=== PATIENT | female | born 1995 | race Caucasian/White ===

== ENCOUNTER 2017-04-18 23:16 | Emergency (ER) | payer BC ==
[2017-04-18] MEDS ORDERED: diPHENhydraMINE IV* 50 MG in NS 0.9% 50 ML* 50 ML IVPB ONE (23:40)
[2017-04-18] MEDS ORDERED: methylPREDNISolone 125 MG* 2 ML VIAL IV ONE (23:40)
[2017-04-18] MEDS ORDERED: diPHENhydraMINE IV* 50 MG/ML 1 ml VIAL (BENADRYL) SLOW PUSH ONE (23:40)
[2017-04-18] MEDS ORDERED: Famotidine IV* 10 MG/ML 2 ML (20 mg) IV SLOW PU ONE (23:41)
[2017-04-19] MEDS ORDERED: EPINEPHrine PEN ADULT(NF) 0.3 MG SYRINGE IM SCH
--- NOTE | 2017-04-19 02:06 | ED ---
Jackson Ortiz Rebecca, scribed for Fahad Croral on 04/19/17 at 0132 . Progress - Progress Note Progress Note: Pt was signed out from Dr. Hoskins at shift change for medications and observation. Re-Evaluation - Re-Evaluation First Eval Re-Evaluation Time: 01:30 Change: Improved Comment: Pt's sx have improved Course/Dx - Course Course Of Treatment: Pt was signed out from Dr. Hoskins awaiting medications and observation. Pt's sx have improved so she will be D/C to home with Dx of food allergy and allergic reaction to food. She understands and agrees. - Diagnoses Provider Diagnoses: Food allergy, Allergic reaction to food The documentation as recorded by the Jackson gillespie Rebecca accurately reflects the service I personally performed and the decisions made by , Fahad Corral.
[2017-04-19 05:09] VITALS: BP 109/74
--- NOTE | 2017-04-23 12:04 | ED ---
Jackson Ortiz Rebecca, scribed for Juvencio Hoskins MD on 04/19/17 at 0002 . Allergic Reaction/Systemic - HPI Summary HPI Summary: Pt is a 21 y/o F BIBA who presents to ED c/o allergic reaction. Pt has never had a formal workup for food allergies, but she has had prior reactions. She believes she is allergic to pine nuts, kiwi and eggplants. While out at dinner tonight at a networking event at the [employer], within minutes after eating various foods, she developed a scratchy throat and rash on her face, forehead and scalp that then spread to the palms and bilateral UE. She additionally notes wheezing at home EDUCATION REPORTER which is when she called an ambulance. No Tx by EMS and she has never required an Epi-Pen previously. - History of Current Complaint Chief Complaint: EDAllergicReaction Time Seen by Provider: 04/18/17 23:40 Hx Obtained From: Patient Onset/Duration: Sudden Onset, Still Present Severity Currently: Mild Pain Intensity: 2 Pain Scale Used: 0-10 Numeric Location: Discrete @ - Face, forehead, scalp, palms and bilateral UE Character: Hives Aggravating Factor(s): Nothing Alleviating Factor(s): Nothing Associated Signs And Symptoms: Positive: Other: - Wheezing EDUCATION REPORTER, scratchy throat - Allergies/Home Medications Allergies/Adverse Reactions: Allergies Allergy/AdvReac Type Severity Reaction Status Date / Time kiwi Allergy Unknown Uncoded 04/18/17 23:37 Reaction Details pine nuts Allergy Unknown Uncoded 04/18/17 23:37 Reaction Details PMH/Surg Hx/FS Hx/Imm Hx Cardiovascular History: Denies: Hx Coronary Artery Disease EENT History: Reports: Other - Hx suspected food allergies Infectious Disease History: No Infectious Disease History: Reports: Traveled Outside the [place] in Last 30 Days - Family History Known Family History: Negative: Hypertension, Diabetes - Social History Alcohol Use: None Smoking Status (MU): Never Smoked Tobacco Review of Systems Positive: Other - Scratchy throat Positive: Other - Wheezing EDUCATION REPORTER Positive: Rash - Hives on the face, forehead, scalp, palms and bilateral UE All Other Systems Reviewed And Are Negative: Yes Physical Exam - Summary Physical Exam Summary: Constitutional: Well-developed, Well-nourished, Alert. (-) Distressed Skin: Warm, Dry, has a faint splotchy rash on her face, scalp and arms HENT: Normocephalic; Atraumatic Eyes: Conjunctiva normal Neck: Musculoskeletal ROM normal neck. (-) JVD, (-) Stridor, (-) Tracheal deviation Cardio: Rhythm regular, rate normal, Heart sounds normal; Intact distal pulses; The pedal pulses are 2+ and symmetric. Radial pulses are 2+ and symmetric. (-) Murmur Pulmonary/Chest wall: Effort normal. (-) Respiratory distress, (-) Wheezes, (-) Rales, (-) Stridor Abd: Soft, (-) Tenderness, (-) Distension, (-) Guarding, (-) Rebound Musculoskeletal: (-) Edema Lymph: (-) Cervical adenopathy Neuro: Alert, Oriented x3 Psych: Mood and affect Normal Triage Information Reviewed: Yes Vital Signs On Initial Exam: Initial Vitals Temp Pulse Resp BP Pulse Ox 99.5 F 76 16 107/63 98 04/18/17 23:30 04/18/17 23:30 04/18/17 23:30 04/18/17 23:30 04/18/17 23:30 Vital Signs Reviewed: Yes Diagnostics - Vital Signs Vital Signs Temp Pulse Resp BP Pulse Ox 04/18/17 23:30 99.5 F 76 16 107/63 98 - Laboratory Lab Statement: Any lab studies that have been ordered have been reviewed, and results considered in the medical decision making process. Allergic Reaction Course/Dx - Course Assessment/Plan: Pt is a 21 y/o F BIBA who presents to ED c/o allergic reaction. Pt has never had a formal workup for food allergies, but she has had prior reactions. She believes she is allergic to pine nuts, kiwi and eggplants. While out at dinner tonight at a networking event at the [facility], within minutes after eating various foods, she developed a scratchy throat and rash on her face, forehead and scalp that then spread to the palms and bilateral UE. She additionally notes wheezing at home EDUCATION REPORTER which is when she called an ambulance. No Tx by EMS and she has never required an Epi-Pen previously. In the ED course, pt was adminstered Benadryl, Pepcid and Solu-Medrol. She should have an Epi-Pen and Prednisone prescribed and a referral to an medicine technologist/ENT. Dispensed her with an Epi-Pen and counseled her on food avoidance. Patient will be signed out to Dr. Corral at shift change to receive medications. - Diagnoses Provider Diagnoses: Food allergy, Allergic reaction to food Discharge - Discharge Plan Condition: Stable Disposition: OTHER Discharge Disposition Comment: Signed out to Dr. Corral at shift change receive medications Prescriptions: Epinephrine [Epipen 2-Bob] 0.3 mg IM SEE INSTRUCTIONS #2 inj Prednisone 20 mg PO DAILY #4 tab Referrals: [facility] [Primary Care Provider] - The documentation as recorded by the Jackson gillespie Rebecca accurately reflects the service I personally performed and the decisions made by , Juvencio Hoskins MD.
== END 2017-04-19 06:25 ==
LOC: ED 23:16
DX: T78.1XXA Other adverse food reactions, not elsewhere classified, initial encounter (principal); R06.2 Wheezing; R21 Rash and other nonspecific skin eruption; L27.2 Dermatitis due to ingested food
CPT/HCPCS: 96372; 96374; 96375; 99284; J1200; J2930

== ENCOUNTER 2018-07-21 18:06 | Emergency (ER) | payer BC, OTHER ==
[2018-07-21 18:15] VITALS: BP 108/74
== END 2018-07-21 19:16 | disposition left against medical advice (07) ==
LOC: ED 18:06
DX: R10.9 Unspecified abdominal pain (principal); Z53.21 Procedure and treatment not carried out due to patient leaving prior to being seen by health care provider
CPT/HCPCS: 99282